=== PATIENT | female | born 1955 | race Caucasian/White ===

== ENCOUNTER → 2017-01-23 | Outpatient (CLI) | payer OTHER ==
--- NOTE | 2017-01-27 06:38 | RADIOLOGY REPORT PS360 ---
MRI-UP EXT ANY JNT W/O-LT HISTORY: Palpable knot on the ulnar surface of the wrist with numbness in the hand GANGLION CYST ORDERING PHYSICIAN: Moris Romero MD PATIENT AGE: 61 years COMPARISON: Radiograph of 11/02/2015 TECHNIQUE: Standard multiplanar multiecho sequences are performed without contrast. FINDINGS: A marker is placed over the area of palpable abnormality. The marker is just medial to the ulnar styloid process and just superficial to a superficial ulnar vein. There is a multilocular cystic area within the subcutaneous soft tissues just medial and volar to the ulnar styloid process. This measures approximately 16 x 14 x 7 mm. This suggests posterior to the flexor carpi ulnaris tendon and may represent a ganglion cyst. There is an additional septated cystic area just distal to the trapezium forearm which measures approximately 1 cm and may represent an additional ganglion cyst. No acute fracture. No other significant anomalies evident. IMPRESSION: 1. Complex multilocular cystic lesion just medial and volar to the ulnar styloid measuring 16 x 14 x 7 mm consistent with a ganglion cyst. 2. 10 mm complex multilocular cystic lesion just distal to the piece of formed also suggesting a small ganglionic cyst
== END ==
LOC: RAD 14:26
DX: M25.532 Pain in left wrist (principal); M67.432 Ganglion, left wrist

== ENCOUNTER → 2017-01-26 | Outpatient (CLI) | payer OTHER | LOC: RAD 16:00 | DX: M25.532 Pain in left wrist (principal); M67.432 Ganglion, left wrist ==